=== PATIENT | male | born 1950 | race Caucasian/White ===

== ENCOUNTER 2023-05-22 08:47 | Emergency (ER) | payer OTHER ==
--- OUTSIDE RECORDS SUMMARY | 2023-05-22 08:49 | XMS REPORT | Continuity of Care Document ---
:1950 Author Organization [facility] t Address [address] [place] [id number] Care Team Providers Name Role Phone PCP, PATIENT DOES NOT HAVE A Primary Care Physician Unavaila ble RADIOLOGY Attending Clinician Unavailable Radiology Attending Clinician Unavailable Payers Payer Name Policy Type Policy Number Effective Date Expiration Date Sera diaz [facility] [id number] 2023 00:00:00 Problems This patient has no known problems. Allergies, Adverse Reactions, Alerts Allergy Allergy Status Severity Reaction(s) Onset Inactive Treating Comm ents Source Name Type Date Date Clinician NO KNOWN Drug Active [facility] ALLERGIE Class [facility] [place] [facility] Social History Social Habit Start Date Stop Date Quantity Comments Source Exposure to 2023-01-02 2023-01-12 Not sure [facility] SARS-CoV-2 (event) 00:00:00 09:49:00 Medica l Branch Sex Assigned At [birth year] [facility] [place] [facility] Smoking Status Start Date Stop Date Source Tobacco smoking consumption [facility] Medical unknown Branch Medications Ordered Filled Start Stop Current Ordering Indication Dosage Frequency Signature Comments Components Source Medication Medication Date Date Medication? Clinician (SIG) Name Name fludeoxyglu 202- No [id number] 12.87 12.87 Univers cose F-18 01-26 i millicurie ity of (FDG) 15:15: 13:57 , [place] injection 00 :00 Intravenou Medi concepcion 12.87 s, ONCE, 1 Branch millicurie dose, On Sun01/26/23 at 1015, Routine Procedures Procedure Date / Time Performed Performing Clinician Wily e POCT GLUCOSE 2023-01-26 13:31:00 Radiology [facility] (AUTOMATED) [facility] Encounters Start End Encounter Admission Attending Care Care Encounter Source Date/Time Date/Time Type Type Clinicians Facility Department ID 2023-01-26 2023-01-26 Outpatient R RADIOLOGY [facility] [id number] Univers 07:32:03 23:59[facility] 2023-01-26 2023-01-26 [facility] Radiology [facility] [id number] Univers 07:32:03 23:59:00 Encounter SPECIALTY [id number] [id number] [phone] In juan BURK [address] [place] [address] 2023-01-26 2023-01-26 [facility] Radiology [facility] [id number] Univers 07:31:51 07:31:51 Encounter SPECIALTY [id number] [id number] [id number] In juan BURK [address] [place] [address] 2023-01-22 2023-01-22 Outpatient R RADIOLOGY [facility] [id number] Univers 00:00:00 00:00:00 [facility] Results Test Description Test Time Test Comments Results Result Comments Source POCT GLUCOSE (AUTOMATED) 2023-01-26 13:33:11 Test Item Value Reference Range Interpretation Comme nts POCT GLU (test code = [id number]) 95 mg/dL 70-110 Lab Interpretation (test code = 30338-0) Normal [facility]
[2023-05-22 09:56] LABS: Absolute Lymphocytes (CBC) 0.5 K/uL (0.7-4.9); Hematocrit 42.7 % (39.6-49.0); Lymphocytes % 4.7 % (15.3-44.8); MCV 84.2 fL (80-100); MPV 8.2 fL (7.6-11.3); Platelets 281 thou/uL (152-406); RBC Red Blood Cell Count 5.07 M/uL (4.33-5.43)
[2023-05-22 10:15] LABS: Magnesium 2.2 mg/dL (1.6-2.4); Potassium 3.9 mEq/L (3.5-5.1); Troponin High Sensitivity 11.4 pg/mL (<58.9)
[2023-05-22 10:25] LABS: Protime INR 1.73
--- NOTE | 2023-05-22 11:49 | RAD REPORT ---
EXAM DESCRIPTION: CT - Head Brain Wo Cont - 05/22/2023 11:22 am CLINICAL HISTORY: Alteration of awareness/confusion COMPARISON: None TECHNIQUE: Computed axial tomography of the head was obtained. IV contrast was not requested. All CT scans are performed using dose optimization technique as appropriate and may include automated exposure control or mA/KV adjustment according to patient size. FINDINGS: An intracranial bleed is not seen The ventricles are normal in caliber No extra-axial fluid collection is noted. No significant hyperdensity within the brain noted Fluid within the sinuses/ mastoids is not seen. IMPRESSION: No acute intracranial abnormality is seen If patient's symptoms persist MRI of the brain would be recommended
[2023-05-22] MEDS ORDERED: ALBUTEROL 2.5 MG/3 ML NEB SOL ONE (11:52)
[2023-05-22] MEDS ORDERED: IPRATROPIUM BROM 0.5MG/2.5ML ONE (11:53)
--- NOTE | 2023-05-22 12:32 | RAD REPORT ---
EXAM DESCRIPTION: Elle Single View05/22/2023 10:22 am CLINICAL HISTORY: Shortness of breath COMPARISON: none FINDINGS: Small to moderate right pleural effusion is suspected. Small left pleural effusion. Prominence of the mediastinum. Heart size is difficult to determine IMPRESSION: Small to moderate right pleural effusion is suspected. Prominence of mediastinum may indicate lymphadenopathy Right volume loss is present A CT chest is recommended
--- NOTE | 2023-05-22 13:04 | RAD REPORT ---
EXAM DESCRIPTION: CT - Chest For Pe Angio - 05/22/2023 12:51 pm CLINICAL HISTORY: Chest pain. SOB COMPARISON: Chest Single View dated 05/22/2023; Head Brain Wo Cont dated 05/22/2023 TECHNIQUE: CT angiogram of the pulmonary arteries was performed with MIP. All CT scans are performed using dose optimization technique as appropriate and may include automated exposure control or mA/KV adjustment according to patient size. FINDINGS: No evidence of pulmonary thromboembolism. No acute aortic finding demonstrated. 14 mm noncalcified nodule left upper lobe. 20 mm noncalcified nodule anteriorly in the left upper lob e. 7 mm noncalcified nodule superior segment right lower lobe. 26 mm mass is present left base. Moder ate area of lung consolidation in the right lower lobe superior segment measuring 6 cm. Soft tissue fullness is seen in the right hilum area suggesting adenopathy. Small bilateral pleural e ffusions, larger on the right with loculation. Subcutaneous soft tissue mass is seen in the upper left chest measuring 3 cm. No acute fracture. IMPRESSION: No evidence of pulmonary thromboembolism. Multiple nodules bilaterally likely representing neoplasia/metastatic disease. 3 cm soft tissue mass upper left chest subcutaneous tissue likely also metastatic. Bilateral pleural effusions, slightly larger on the right, with loculation.
--- NOTE | 2023-05-22 13:57 | EDPHYS ---
Physician Documentation [facility] Name: Jabier Hernandez Age: 72 yrs Sex: Male : 1950 Arrival Date: 05/22/2023 Time: 08:47 Bed 4 Private MD: ED Physician Noam Appiah HPI: 05/22 09:30 This 72 yrs old Male presents to ER via Ambulatory with complaints of Shortness Of cp Breath. 09:30 The patient has shortness of breath intermittent, with light activity and at rest. cp Onset: The symptoms/episode began/occurred 2 day(s) ago. Associated signs and symptoms: Pertinent positives: patient reports intermittent episodes of "confusion", Pertinent negatives: chest pain, productive cough, diaphoresis, fever, vomiting. Severity of symptoms: in the emergency department the symptoms have improved. Patient is a 72-year-old male with past medical history significant for lung cancer. Patient reports he is receiving chemo and [facility] at the [facility] and presents to the emergency department with complaints of intermittent shortness of breath over the last couple days. Patient reports episodes where he's confused. Patient reports these episodes are brief and he returns to normal. Patient reports recent discharge from [facility] last Sunday after being hospitalized for left side chest pain. Historical: - Allergies: 09:04 No Known Allergies; iw - Home Meds: 09:12 benzonatate 100 mg oral capsule 3 times per day [Active]; digoxin 125 mcg (0.125 mg) iw Oral tablet daily [Active]; guaifenesin 100 mg/5 mL Oral liquid every 4 hours [Active]; lidocaine patch twice a day [Active]; morphine 15 mg Oral tablet every 4 hours [Active]; morphine 30 mg Oral Capsule, ER Multiphase 24 hr every 12 hours [Active]; sennosides 8.6 mg oral capsule 1 to 2 times per day [Active]; 09:26 ipratropium-albuterol 20-100 mcg/actuation Inhl Mist every 6 hours [Active]; iw rivaroxaban 20 mg oral tablet every evening [Active]; polyethylene glycol 3350(bulk) miscellaneous granules [Active]; atorvastatin 80 mg oral tablet daily [Active]; capmatinib 200 mg oral tablet 2 times per day [Active]; cholecalciferol (vitamin D3) 50 mcg (2,000 unit) oral tablet daily [Active]; metoprolol succinate 25 mg oral Tablet, Extended Release 24 hr daily [Active]; ondansetron HCl 4 mg Oral tablet every 8 hours [Active]; timolol maleate 0.5 % Opht Drops, Once Daily every 12 hours [Active]; latanoprost 0.005 % ophthalmic (eye) drops every evening [Active]; - Immunization history:: Adult Immunizations unknown. - Social history:: Smoking status: unknown. ROS: 09:35 Constitutional: Negative for body aches, chills, fever, poor PO intake. cp 09:35 Eyes: Negative for injury, pain, redness, and discharge. cp 09:35 ENT: Negative for drainage from ear(s), ear pain, sore throat, difficulty swallowing, difficulty handling secretions. 09:35 Cardiovascular: Negative for chest pain, edema, palpitations. 09:35 Respiratory: Positive for shortness of breath, Negative for cough. 09:35 Abdomen/GI: Negative for abdominal pain, vomiting, diarrhea, constipation. 09:35 Neuro: Positive for altered mental status, intermittent, Negative for dizziness, headache, numbness, syncope, weakness. 09:35 All other systems are negative. Exam: 09:40 Constitutional: The patient appears in no acute distress, alert, awake, cp non-diaphoretic, non-toxic, well developed, well nourished. 09:40 Head/Face: Normocephalic, atraumatic. cp 09:40 Eyes: Periorbital structures: appear normal, Pupils: equal, round, and reactive to light and accomodation, Extraocular movements: intact throughout, Conjunctiva: normal, no exudate, no injection, Sclera: no appreciated abnormality, Lids and lashes: appear normal, bilaterally. 09:40 ENT: External ear(s): are unremarkable, Nose: is normal, Mouth: Lips: moist, Oral mucosa: pink and intact, moist, Posterior pharynx: is normal, airway is patent, no erythema, no exudate. 09:40 Neck: ROM/movement: is normal, is supple, without pain, no range of motions limitations. 09:40 Chest/axilla: Inspection: normal. 09:40 Cardiovascular: Rate: normal, Rhythm: regular, Edema: is not appreciated, JVD: is not appreciated. 09:40 Respiratory: the patient does not display signs of respiratory distress, Respirations: normal, no use of accessory muscles, no retractions, labored breathing, is not present, Breath sounds: decreased breath sounds, are heard in the right posterior middle lobe and right posterior lower lobe, stridor, is not appreciated, wheezing: is not appreciated. 09:40 Abdomen/GI: Inspection: abdomen appears normal, Palpation: abdomen is soft and non-tender, in all quadrants. 09:40 Back: pain, is absent, ROM is normal. 09:40 Skin: cellulitis, is not appreciated, no rash present. 09:40 Neuro: Orientation: to person, place \\T\\ time. Mentation: able to follow commands, Motor: moves all fours, strength is normal, Sensation: is normal, Gait: is steady, at a normal pace, without difficulty. 09:45 ECG was reviewed by the Attending Physician. Vital Signs: 08:59 BP 125 / 77; Pulse 68; Resp 16; Temp 98.4; Pulse Ox 96% on R/A; iw 11:46 BP 155 / 88; Pulse 83; Pulse Ox 100% on Nebulizer Mask; ap3 17:38 BP 149 / 79; Pulse 81; Resp 18; Pulse Ox 100% on R/A; ld1 MDM: 09:08 Patient medically screened. 10:00 Differential diagnosis: Bronchitis Myocardial Infarction pneumonia, Pneumothorax cp pulmonary edema, Pulmonary Embolism Sepsis. 13:30 Data reviewed: vital signs, nurses notes, lab test result(s), EKG, radiologic studies, cp CT scan, plain films. 13:30 I considered the following discharge prescriptions or medication management in the emergency department Medications were administered in the Emergency Department. See MAR. Care significantly affected by the following chronic conditions: Cancer. Counseling: I had a detailed discussion with the patient and/or guardian regarding the historical points, exam findings, and any diagnostic results supporting the discharge/admit diagnosis, lab results, radiology results, the need to transfer to another facility, for higher level of care. Response to treatment: the patient's symptoms have mildly improved after treatment. 15:30 Management of patient was discussed with the following: DR Hathaway \\T\\NANCY in [place] who will cp accept patient as transfer after discussion. 05/22 09:25 Order name: Basic Metabolic Panel; Complete Time: 10:34 05/22 09:25 Order name: CBC with Diff; Complete Time: 10:34 cp 05/22 09:25 Order name: Magnesium; Complete Time: 10:34 cp 05/22 09:25 Order name: NT PRO-BNP; Complete Time: 10:34 cp 05/22 09:25 Order name: PT-INR; Complete Time: 10:34 cp 05/22 09:25 Order name: Troponin HS; Complete Time: 10:34 cp 05/22 09:25 Order name: XRAY Chest (1 view); Complete Time: 13:23 cp 05/22 10:35 Order name: CT Chest For PE Angio; Complete Time: 13:23 cp 05/22 13:24 Interpretation: Report reviewed. cp 05/22 10:59 Order name: CT Head Brain wo Cont; Complete Time: 13:23 cp 05/22 09:25 Order name: EKG; Complete Time: 09:26 cp 05/22 09:25 Order name: Cardiac monitoring; Complete Time: 09:55 cp 05/22 09:25 Order name: EKG - Nurse/Tech; Complete Time: 09:55 cp 05/22 09:25 Order name: IV Saline Lock; Complete Time: 09:55 cp 05/22 09:25 Order name: Labs collected and sent; Complete Time: 09:55 cp 05/22 09:25 Order name: O2 Per Protocol; Complete Time: 09:55 cp 05/22 09:25 Order name: O2 Sat Monitoring; Complete Time: 09:55 cp EC:45 Rate is 65 beats/min. Rhythm is irregular. QRS interval is normal. QT interval is cp normal. T waves are Inverted in lead aVR. Interpreted by me. Reviewed by me. Administered Medications: 11:45 Drug: DuoNeb Nebulize (2.5 mg - 0.5 mg) 3 ml Route: Nebulizer; ap3 16:43 Follow up: Response: No adverse reaction ap3 16:53 Drug: Piperacillin-Tazobactam IVPB 3.375 grams Route: IVPB; Infused Over: 60 mins; ap3 Site: right antecubital; 19:12 Follow up: Response: No adverse reaction; IV Status: Completed infusion; IV Intake: as6 100ml Disposition: 05/23 11:28 Co-signature as Attending Physician, Noam COX was immediately available on-site ms3 in the Emergency Department for consultation in the care of the patient. Disposition Summary: 05/22/23 13:56 Transfer Ordered Transfer Location: 's Administration System cp Reason: Higher level of care cp Condition: Stable cp Problem: new cp Symptoms: have improved cp Accepting Physician: Doctor(05/22/23 19:13) as6 Diagnosis - Malignant pleural effusion cp - Dyspnea cp Forms: - Medication Reconciliation Form cp - SBAR form cp Signatures: Dispatcher [employer] EDMS Josefina Kelley, RN RN iw Wero Rose PA PA cp Colleen Doe RN RN ap3 Noam Appiah DO DO ms3 Chang Foster RN RN as6 Trini Murphy RN RN eh3 Corrections: (The following items were deleted from the chart) 05/22 17:16 13:25 LACTATE+C.LAB.BRZ ordered. EDMS EDMS 17:16 14:13 TYPE AND SCREEN+BB.LAB.BRZ ordered. EDMS EDMS 17:56 13:25 BLOOD CULTURE*+BA.LAB.BRZ ordered. EDMS EDMS 19:13 13:56 Doctor cp as6
--- NOTE | 2023-05-22 13:57 | ER ---
Nurse's Notes [facility] Name: Jabier Hernandez Age: 72 yrs Sex: Male : 1950 Arrival Date: 05/22/2023 Time: 08:47 Bed 4 Private MD: Diagnosis: Malignant pleural effusion;Dyspnea Presentation: 05/22 08:59 Chief complaint: Patient states: diff breathing X 1.5 days, no cough, no fever or iw chills, intermittent SOB, hx of afib, hx of lung cancer and tumor on chest wall and on on rib cage, his afib has become less controlled since the new cancer 4 months ago, had previous lung cancer 2 years ago. Coronavirus screen: Client presents with at least one sign or symptom that may indicate coronavirus-19. Ebola Screen: Patient negative for fever greater than or equal to 101.5 degrees Fahrenheit, and additional compatible Ebola Virus Disease symptoms Patient denies exposure to infectious person. Patient denies travel to an Ebola-affected area in the 21 days before illness onset. No symptoms or risks identified at this time. Initial Sepsis Screen: Does the patient meet any 2 criteria? No. Patient's initial sepsis screen is negative. Does the patient have a suspected source of infection? No. Patient's initial sepsis screen is negative. Risk Assessment: Do you want to hurt yourself or someone else? Patient reports no desire to harm self or others. Onset of symptoms was May 21, 2023. 08:59 Method Of Arrival: Ambulatory iw 08:59 Acuity: CALEB 3 iw Triage Assessment: 11:47 Respiratory: Onset: The symptoms/episode began/occurred gradually. ap3 Historical: - Allergies: 09:04 No Known Allergies; iw - Home Meds: 09:12 benzonatate 100 mg oral capsule 3 times per day [Active]; digoxin 125 mcg (0.125 mg) iw Oral tablet daily [Active]; guaifenesin 100 mg/5 mL Oral liquid every 4 hours [Active]; lidocaine patch twice a day [Active]; morphine 15 mg Oral tablet every 4 hours [Active]; morphine 30 mg Oral Capsule, ER Multiphase 24 hr every 12 hours [Active]; sennosides 8.6 mg oral capsule 1 to 2 times per day [Active]; 09:26 ipratropium-albuterol 20-100 mcg/actuation Inhl Mist every 6 hours [Active]; iw rivaroxaban 20 mg oral tablet every evening [Active]; polyethylene glycol 3350(bulk) miscellaneous granules [Active]; atorvastatin 80 mg oral tablet daily [Active]; capmatinib 200 mg oral tablet 2 times per day [Active]; cholecalciferol (vitamin D3) 50 mcg (2,000 unit) oral tablet daily [Active]; metoprolol succinate 25 mg oral Tablet, Extended Release 24 hr daily [Active]; ondansetron HCl 4 mg Oral tablet every 8 hours [Active]; timolol maleate 0.5 % Opht Drops, Once Daily every 12 hours [Active]; latanoprost 0.005 % ophthalmic (eye) drops every evening [Active]; - Immunization history:: Adult Immunizations unknown. - Social history:: Smoking status: unknown. Screenin:05 [facility] ED Fall Risk Assessment (Adult) Score/Fall Risk Level 0 - 2 = Low Risk. Abuse eh3 screen: Denies threats or abuse. Denies injuries from another. Nutritional screening: No deficits noted. Tuberculosis screening: No symptoms or risk factors identified. Assessment: 09:05 General: Appears in no apparent distress. uncomfortable, Behavior is calm, cooperative, eh3 appropriate for age. Pain: Denies pain. Neuro: Level of Consciousness is awake, alert, obeys commands, Oriented to person, place, time, situation. Cardiovascular: Capillary refill < 3 seconds Patient's skin is warm and dry. Rhythm is sinus tachycardia. Respiratory: Reports shortness of breath at rest cough that is productive, labored breathing Airway is patent Respiratory effort is even, labored, Respiratory pattern is regular, symmetrical, Breath sounds are coarse Breath sounds with rhonchi bilaterally. GI: Abdomen is round non-distended. Derm: Skin is pink, warm \\T\\ dry. Musculoskeletal: Circulation, motion, and sensation intact. Range of motion: intact in all extremities. 10:00 Reassessment: Patient appears in no apparent distress at this time. Patient and/or eh3 family updated on plan of care and expected duration. Pain level reassessed. Patient is alert, oriented x 3, equal unlabored respirations, skin warm/dry/pink. 14:44 Reassessment: Phlebotomy attempted to collect blood X 2 - unsuccessful. States "I will ld1 go trade with other staff member to come down here and try to collect labs.". 17:38 Reassessment: Patient appears in no apparent distress at this time. No changes from ld1 previously documented assessment. Patient and/or family updated on plan of care and expected duration. Pain level reassessed. Patient is alert, oriented x 3, equal unlabored respirations, skin warm/dry/pink. Vital Signs: 08:59 BP 125 / 77; Pulse 68; Resp 16; Temp 98.4; Pulse Ox 96% on R/A; iw 11:46 BP 155 / 88; Pulse 83; Pulse Ox 100% on Nebulizer Mask; ap3 17:38 BP 149 / 79; Pulse 81; Resp 18; Pulse Ox 100% on R/A; ld1 ED Course: 08:52 Patient arrived in ED. mg5 08:53 Wero Rose PA is PHCP. cp 08:53 Noam Appiah DO is Attending Physician. cp 09:03 Triage completed. iw 09:04 Arm band placed on. iw 09:05 Patient has correct armband on for positive identification. Placed in gown. Bed in low eh3 position. Call light in reach. Side rails up X2. Adult w/ patient. Provided Education on: Use of call fan. Client placed on continuous cardiac and pulse oximetry monitoring. NIBP monitoring applied. 09:05 Oxygen administration via nasal cannula \\T\\ 2L/min. eh3 10:24 XRAY Chest (1 view) In Process Unspecified. EDMS 11:23 CT Head Brain wo Cont In Process Unspecified. EDMS 11:40 Radiology exam delayed due to IV insertion attempt and/or patient not having ls3 appropriate IV at this time. 12:53 CT Chest For PE Angio In Process Unspecified. EDMS 19:12 No provider procedures requiring assistance completed. Patient transferred, IV remains as6 in place. Administered Medications: 11:45 Drug: DuoNeb Nebulize (2.5 mg - 0.5 mg) 3 ml Route: Nebulizer; ap3 16:43 Follow up: Response: No adverse reaction ap3 16:53 Drug: Piperacillin-Tazobactam IVPB 3.375 grams Route: IVPB; Infused Over: 60 mins; ap3 Site: right antecubital; 19:12 Follow up: Response: No adverse reaction; IV Status: Completed infusion; IV Intake: as6 100ml Medication: 19:11 VIS not applicable for this client. as6 Intake: 19:12 IV: 100ml; Total: 100ml. as6 Outcome: 13:56 ER care complete, transfer ordered by . cp 19:12 Transferred by ground EMS to [facility] Transfer form completed. as6 X-rays sent w/ patient. 19:12 Condition: stable 19:13 Patient left the ED. as6 Signatures: Dispatcher [employer] EDJosefina Parks, RN RN iw Wero Rose, PA PA Colleen Ventura RN RN [id number] Yara Lemus ls3 Martha Appiah RN RN ld1 Chang Foster RN RN as6 Trini Murphy, RN RN 3 Ling Delaney mg5 Corrections: (The following items were deleted from the chart) 10:49 09:27 Trini Murphy, RN is Primary Nurse. 3 [facility]
--- NOTE | 2023-05-22 16:26 | EKG ---
Test Date: 2023-05-22 Test Time: 09:39:42 Lath Hand: RACQUEL MEASUREMENT RESULTS: Intervals: Rate: 65 [place]: QRSD: 98 QT: 434 QTc: 451 [place]: P: [place]: QRS: 101 T: 46 INTERPRETIVE STATEMENTS: Atrial flutter with variable AV block Rightward axis Cannot rule out Anterior infarct, age undetermined Abnormal ECG No previous ECG available for comparison Electronically Signed On 05-22-23 16:25:10 CDT by Tim Rascon
[2023-05-22] MEDS ORDERED: NA CHLORIDE 0.9% 100 ML ONE (16:56)
[2023-05-22] MEDS ORDERED: PIPERACIL/TAZO 3.375 GM VIAL IV ONE (16:56)
[2023-05-22 19:17] VITALS: TEMP 98.4
[2023-05-22 19:18] VITALS: O2SAT 100
[2023-05-22 19:19] VITALS: BP 149/79
== END 2023-05-22 19:13 ==
LOC: ER 08:47
DX: C34.91 Malignant neoplasm of unspecified part of right bronchus or lung (principal); J91.0 Malignant pleural effusion
CPT/HCPCS: 93005; 85025; 80048; 36415; 83735; 85610; 84484; 83880; 70450; 71275; 71045; Q9967; J2543; J7613; J7644